=== PATIENT | male | born 1955 | race Caucasian/White ===

== ENCOUNTER 2016-06-11 18:19 | Emergency (ER) | payer BC ==
[2016-06-11 18:55] VITALS: BP 136/79
[2016-06-11] MEDS ORDERED: Tetan/Diph/Pertus SYR(Tdap)* 0.5 ML SYR(BOOSTRIX) use SYR IM ONE (19:07)
--- NOTE | 2016-06-11 19:32 | UC ---
Laceration HPI - History Of Current Complaint Chief Complaint: UCLaceration Stated Complaint: FINGER LAC Time Seen by Provider: 06/11/16 19:07 Hx Obtained From: Patient Laceration Location: Finger - lacerated R 2nd/3rd fingers with a sharp knife while trimming a cow's hoof Mechanism Of Injury: Sharp Trauma Onset/Duration: Sudden Onset - few hours Severity: Mild - states he needs a Tetanus shot Related History: Dominant Hand Left - Allergies/Home Medications Allergies/Adverse Reactions: Allergies Allergy/AdvReac Type Severity Reaction Status Date / Time Erythromycin Allergy Intermediate Hives Verified 02/07/16 12:19 PMH/Surg Hx/FS Hx/Imm Hx Previously Healthy: Yes Endocrine History Of: Denies: Diabetes Cardiovascular History Of: Denies: Cardiac Disorders Respiratory History Of: Denies: COPD - Surgical History Surgical History: Yes Surgery Procedure, Year, and Place: Cervical spine sx - Family History Known Family History: Positive: Cardiac Disease - MOTHER Negative: Hypertension, Diabetes - Social History Occupation: Employed Full-time - Dairy farm Alcohol Use: None Substance Use Type: None Smoking Status (MU): Never Smoked Tobacco Have You Smoked in the Last Year: No Review of Systems Constitutional: Negative Skin: Other - laceration Respiratory: Negative Cardiovascular: Negative Musculoskeletal: Negative Neurological: Negative Psychological: Negative All Other Systems Reviewed And Are Negative: Yes Physical Exam Triage Information Reviewed: Yes Appearance: Well-Appearing, No Pain Distress, Well-Nourished Vital Signs: Initial Vital Signs Temp 97.1 F 06/11/16 18:52 Pulse 60 06/11/16 18:52 Resp 18 06/11/16 18:52 BP 136/79 06/11/16 18:52 Pulse Ox 98 06/11/16 18:52 Vital Signs Reviewed: Yes Respiratory Exam: Normal Cardiovascular Exam: Normal Musculoskeletal: Positive: Strength Intact, ROM Intact Neurological Exam: Normal Neurological: Positive: Alert Psychological Exam: Normal Skin Exam: Other - superficial. linear lacerations palmar surface of R 2nd/3rd fingers. each laceration 6mm in length and 2mm deep, 2mm wide Laceration Repair - Laceration Repair 2 Description: Linear Laceration Size After Repair: Length (cm) - 6mm, Width (mm) - 2mm, Depth (mm) - 2mm Modified For Repair: No Closure Material: Skin Adhesive Laceration Course/Dx - Differential Dx - Laceration/Wound Differental Diagnoses: Abrasion, Avulsion, Laceration Provider Diagnoses: finger lacerations Discharge - Discharge Plan Condition: Good Disposition: HOME Patient Education Materials: Diphtheria/Acellular Pertussis/Tetanus Booster Vaccine (Tdap) (Injection) Additional Instructions: keep wounds clean and dry if signs of infection occur return here as soon as possible
== END 2016-06-11 19:52 | disposition home or self-care (01) ==
LOC: UCEAST 18:19
DX: S61.218A Laceration without foreign body of other finger without damage to nail, initial encounter (principal); W26.0XXA Contact with knife, initial encounter; Z88.1 Allergy status to other antibiotic agents
CPT/HCPCS: 90471; 90715; 99211; G0463

== ENCOUNTER 2017-02-18 13:17 | Emergency (ER) | payer BC ==
[2017-02-18 13:29] VITALS: BP 143/84
--- NOTE | 2017-02-18 14:18 | UC ---
Skin Complaint HPI - HPI Summary HPI Summary: Earlier today pt noticed pruritic area on left triceps, looked in the mirror and noticed a tick. Here today for removal. - History of Current Complaint Chief Complaint: UCSkin Stated Complaint: TICK BITE Hx Obtained From: Patient Onset/Duration: Sudden Onset Pain Intensity: 1 Pain Scale Used: 0-10 Numeric Location: Other - Left triceps Character: Pruritus, Pain, Redness Associated Signs & Symptoms: Positive: Negative - Allergy/Home Medications Allergies/Adverse Reactions: Allergies Allergy/AdvReac Type Severity Reaction Status Date / Time Erythromycin Allergy Intermediate Hives Verified 02/07/16 12:19 Review of Systems Constitutional: Negative Skin: Other - 2-3mm area of erythema and pruritis on left triceps Respiratory: Negative Cardiovascular: Negative Gastrointestinal: Negative Motor: Negative Neurovascular: Negative Musculoskeletal: Negative Neurological: Negative Psychological: Anxious - Very anxious about potential transmission of powassan virus All Other Systems Reviewed And Are Negative: Yes PMH/Surg Hx/FS Hx/Imm Hx - Surgical History Surgical History: Yes Surgery Procedure, Year, and Place: Cervical spine sx - Family History Known Family History: Positive: Cardiac Disease - MOTHER Negative: Hypertension, Diabetes - Social History Alcohol Use: None Substance Use Type: None Smoking Status (MU): Never Smoked Tobacco Have You Smoked in the Last Year: No Physical Exam Triage Information Reviewed: Yes Appearance: Well-Appearing Vital Signs: Initial Vital Signs Temp 98.5 F 02/18/17 13:26 Pulse 68 02/18/17 13:26 Resp 18 02/18/17 13:26 BP 143/84 02/18/17 13:26 Pulse Ox 98 02/18/17 13:26 Vital Signs Reviewed: Yes Respiratory Exam: Normal Respiratory: Positive: Chest non-tender, Lungs clear, Normal breath sounds Cardiovascular Exam: Normal Cardiovascular: Positive: RRR, No Murmur Neurological Exam: Normal Psychological Exam: Normal Skin Exam: Other Skin: Positive: Other - 2-3mm area of erythema on left triceps. Tick still within the skin and appears engorged Course/Dx - Course Course Of Treatment: The tick was easily removed with [employer] tick removers - all segments of the tick were removed. The pt was very anxious about the possible transmission of powassan virus he has heard about. Pt is unsure how long the tick has been on his person. Treatment for 21 days was advised, the patient, however, said that in the past he has only done the one 200mg dose. I explained the difference in situation, in that he is unsure how long the tick has been on him and 21 days of doxy would be appropriate treatment. Pt refused and wanted a single 200mg dose. The tick was placed in a sterile specimen container and given to the patient, along with contact information for [facility], [place] in regards to powassan testing. - Differential Diagnoses - Skin Complaint Differential Diagnoses: Other - tick bite - Diagnoses Provider Diagnoses: Tick bite left upper arm Discharge - Discharge Plan Condition: Stable Disposition: HOME Prescriptions: DOXYcycline CAP(*) [DOXYcycline 100MG CAP(*)] 100 mg PO DAILY #2 cap Patient Education Materials: Tick Bite (ED) Referrals: Clement Perez DO [Primary Care Provider] - If Needed Additional Instructions: Pt advised to look for early lyme disease symptoms. Advised to go to ED or call office if you experience fever, chills, or increased redness/swelling/pain in the area of the tick bite. Please follow up with [facility], [place] regarding powassan testing.
== END 2017-02-18 14:30 | disposition home or self-care (01) ==
LOC: UCEAST 13:17
DX: S40.862A Insect bite (nonvenomous) of left upper arm, initial encounter (principal); W57.XXXA Bitten or stung by nonvenomous insect and other nonvenomous arthropods, initial encounter; Y92.9 Unspecified place or not applicable
CPT/HCPCS: 99212; G0463

== ENCOUNTER 2017-10-13 07:14 | Emergency (ER) | payer BC ==
[2017-10-13 07:27] VITALS: BP 148/81
--- NOTE | 2017-10-13 07:51 | UC ---
Skin Complaint HPI - HPI Summary HPI Summary: PATIENT FOUND A TICK ATTACHED TO HIS RIGHT INNER THIGH ABOUT 2 DAYS AGO. UNSURE HOW LONG IT WAS ATTACHED. HE REMOVED THE TICK USING A TICK TWISTER BUT REPORTS HE HAD SOME DIFFICULTY AND ENDED UP ABRADING HIS SKIN A LITTLE BIT. HE WOKE UP THIS MORNING WITH AN AREA OF REDNESS AND TENDERNESS AROUND THE TICK BITE SITE. NO FEVER, HEADACHE OR NAUSEA. - History of Current Complaint Chief Complaint: UCSkin Time Seen by Provider: 10/13/17 07:34 Stated Complaint: TICK BITE Hx Obtained From: Patient Onset/Duration: Sudden Onset, Lasting Hours, Still Present Timing: Constant Onset Severity: Mild Current Severity: Mild Pain Intensity: 2 Pain Scale Used: 0-10 Numeric Location: Discrete - RIGHT INNER THIGH Character: Pain, Redness Aggravating Factor(s): Touch Alleviating Factor(s): Nothing Associated Signs & Symptoms: Positive: Tenderness Related History: Insect Bite/Sting - Allergy/Home Medications Allergies/Adverse Reactions: Allergies Allergy/AdvReac Type Severity Reaction Status Date / Time erythromycin base Allergy Hives Verified 10/13/17 07:27 Home Medications: Home Medications Aspirin 81 mg PO 10/13/17 [History] Review of Systems Constitutional: Negative Skin: Rash Respiratory: Negative Cardiovascular: Negative Gastrointestinal: Negative Neurological: Negative All Other Systems Reviewed And Are Negative: Yes PMH/Surg Hx/FS Hx/Imm Hx Endocrine History: Dyslipidemia - Surgical History Surgical History: Yes Surgery Procedure, Year, and Place: Cervical spine sx - Family History Known Family History: Positive: Cardiac Disease - MOTHER Negative: Hypertension, Diabetes - Social History Alcohol Use: None Substance Use Type: None Smoking Status (MU): Never Smoked Tobacco Have You Smoked in the Last Year: No Physical Exam Triage Information Reviewed: Yes Appearance: Well-Appearing, No Pain Distress, Well-Nourished Vital Signs: Initial Vital Signs Temp 97.2 F 10/13/17 07:23 Pulse 55 10/13/17 07:23 Resp 18 10/13/17 07:23 BP 148/81 10/13/17 07:23 Pulse Ox 96 10/13/17 07:23 Vital Signs Reviewed: Yes Eyes: Positive: Conjunctiva Clear ENT: Positive: Hearing grossly normal Neck: Positive: Supple Respiratory: Positive: No respiratory distress, No accessory muscle use Cardiovascular: Positive: Pulses Normal Abdomen Description: Positive: Soft Musculoskeletal: Positive: No Edema Neurological: Positive: Alert Psychological: Positive: Age Appropriate Behavior Skin: Positive: Other - 5CM DIAMETER AREA OF ERYTHEMA SURROUNDING TICK BITE SITE Course/Dx - Diagnoses Provider Diagnoses: 1. CELLULITIS. 2. LYME PROPHYLAXIS Discharge - Sign-Out/Discharge Documenting (check all that apply): Discharge/Admit/Transfer - Discharge Plan Condition: Stable Disposition: HOME Prescriptions: Cephalexin CAP* [Keflex 500 CAP*] 1,000 mg PO BID #28 cap Doxycycline Monohydrate [Doxycycline Monohydrate] 2 cap PO ONCE #2 cap Patient Education Materials: Cellulitis (ED), Tick Bite (ED) Referrals: Clement Perez DO [Primary Care Provider] - If Needed Additional Instructions: You received an rx for 200mg of doxycycline for prophylaxis against Lyme disease. The Infectious Disease Society of [place] (IDSA) does not generally recommend antimicrobial prophylaxis for prevention of Lyme disease after a recognized tick bite. However, in areas that are highly endemic for Lyme disease, a single dose of doxycycline may be offered to adult patients (200 mg) who are not and to children older than 8 years of age (4 mg/kg up to a maximum dose of 200 mg) when all of the following circumstances exist: CRITERIA FOR RECEIVING PROPHYLACTIC TREATMENT FOR LYME DISEASE 1) TICK ATTACHED FOR AT LEAST 36 HRS 2) TICK IS AN ADULT OR [place] DEER TICK 3) YOU LIVE IN AN AREA WHERE LYME DISEASE IS PREVALENT (i.e., [place], [place], [place], , [place] , [place], [place], [place], [place], [place], [place], [place], [place], [place]) 4) YOU HAVE NO CONTRAINDICATION TO THE MEDICATION (DOXYCYCLINE) 5) PROPHYLAXIS IS BEGUN WITHIN 72 HRS OF TICK REMOVAL YOUR CHANCES OF DEVELOPING LYME DISEASE ARE EXTREMELY SMALL. BE VIGILANT OF YOUR SYMPTOMS AND DON'T HESITATE TO GET SEEN AGAIN IF YOU DEVELOP UNEXPLAINED FEVER, HEADACHE, JOINT PAIN, BODY ACHES, RASH OR ANY OTHER CONCERNING SYMPTOMS. Antibiotic treatment following a tick bite is not recommended as a means to prevent anaplasmosis, babesiosis, ehrlichiosis, or [place] spotted fever. There is no evidence this practice is effective, and it may simply delay onset of disease. Instead, persons who experience a tick bite should be alert for symptoms suggestive of tickborne illness and consult a physician if fever, rash, or other symptoms of concern develop. YOUR RASH IS CONSISTENT IN APPEARANCE WITH A SKIN INFECTION. IT DOES NOT HAVE THE APPEARANCE OF A LYME DISEASE RASH. THE TIMING IS ALSO MORE CONSISTENT WITH A DEVELOPING SKIN INFECTION. TAKE THE ANTIBIOTIC TWICE DAILY FOR THE FULL 7 DAYS. KEEP THE AREA CLEAN. SEEK FOLLOW-UP IF IT IS NOT IMPROVING EXPECTED. - Billing Disposition and Condition Condition: STABLE Disposition: Home
== END 2017-10-13 07:58 | disposition home or self-care (01) ==
LOC: UCEAST 07:14
DX: S70.361A Insect bite (nonvenomous), right thigh, initial encounter (principal); L03.115 Cellulitis of right lower limb; W57.XXXA Bitten or stung by nonvenomous insect and other nonvenomous arthropods, initial encounter; Y93.9 Activity, unspecified; Y92.9 Unspecified place or not applicable; E78.5 Hyperlipidemia, unspecified; Z88.1 Allergy status to other antibiotic agents; Z82.49 Family history of ischemic heart disease and other diseases of the circulatory system
CPT/HCPCS: 99212; G0463

== ENCOUNTER 2019-04-05 20:41 | Emergency (ER) | payer BC ==
--- NOTE | 2019-04-05 21:32 | UC ---
Cardiac HPI - HPI Summary HPI Summary: Mr. Martinez started with a difficult to characterize chest pain/epigastric pain at about 1600 hrs. The pain radiates a little bit into his back. He feels gassy but has no other associated symptoms. He cannot characterize any exacerbating or relieving conditions. He was at a meeting all day and picked at different foods and then had pizza shortly before the meeting ended. He drank a lot of coffee and stopped at [employer] and got a couple coffee on the way home from the meeting. The meeting was not stressful. His doctors told him he has extra beats. - History of Current Complaint Chief Complaint: UCChestPain Stated Complaint: ABDOMINAL PAIN Time Seen by Provider: 04/05/19 20:46 Hx Obtained From: Patient, Family/Insole And Outsole Splitter Onset/Duration: Sudden Onset, Lasting Hours Timing: Constant Initial Severity: Moderate Current Severity: Moderate Pain Intensity: 5 Chest Pain Location: Lower Sternal - And epigastric Character: Dull/Aching Aggravating Factor(s): Nothing Alleviating Factor(s): Nothing - Burping - Risk Factors Cardiac Risk Factors: Elevated Lipids, Family History - Allergy/Home Medications Allergies/Adverse Reactions: Allergies Allergy/AdvReac Type Severity Reaction Status Date / Time erythromycin base Allergy Hives Verified 04/05/19 21:00 PMH/Surg Hx/FS Hx/Imm Hx Endocrine History: Dyslipidemia - Surgical History Surgical History: Yes Surgery Procedure, Year, and Place: Cervical spine sx - Family History Known Family History: Positive: Cardiac Disease - MOTHER, his older brother had a heart attack a couple years ago Negative: Hypertension, Diabetes - Social History Alcohol Use: None Substance Use Type: None Smoking Status (MU): Never Smoked Tobacco Have You Smoked in the Last Year: No Review of Systems All Other Systems Reviewed And Are Negative: Yes Constitutional: Positive: Negative Respiratory: Positive: Negative Cardiovascular: Positive: Chest Pain Gastrointestinal: Positive: Abdominal Pain Physical Exam - Summary Physical Exam Summary: He is nontoxic in appearance with stable vital signs. Triage Information Reviewed: Yes Appearance: Well-Appearing, No Pain Distress Vital Signs: Initial Vital Signs Temp 97.9 F 04/05/19 20:56 Pulse 60 04/05/19 20:56 Resp 16 04/05/19 20:56 BP 156/86 04/05/19 20:56 Pulse Ox 98 04/05/19 20:56 Vital Signs Reviewed: Yes ENT Exam: Normal Neck exam: Normal Respiratory Exam: Normal Cardiovascular Exam: Normal Abdominal Exam: Other - He is tender in the epigastrium. Negative Stark sign Musculoskeletal Exam: Normal Neurological Exam: Normal Skin Exam: Normal Diagnostics - EKG Cardiac Rate: NL Cardiac Rhythm: Sinus: Normal, Other Rhythm: New Ectopy: PVCs - Ventricular bigeminy at a controlled rate ST Segment: Normal EKG Comparison: Other - No old EKGs in the system - Assessment/Plan Course Of Treatment: Mr. Martinez has a worrisome story. He's had about 5 hours of chest pain and presents with ventricular bigeminy. His exam is pretty unremarkable and his story is consistent with a GI etiology however he clearly needs a rule out on a monitor with labs. He has agreed to go over to the emergency department for evaluation by ambulance. An IV was initiated here he was given 243 mg of aspirin. He took 81 mg this morning. - Clinical Impression Provider Diagnosis: Chest pain Discharge ED - Sign-Out/Discharge Documenting (check all that apply): Patient Departure All imaging exams completed and their final reports reviewed: No Studies - Discharge Plan Condition: Stable Disposition: ADMITTED TO [facility] Patient Education Materials: Chest Pain (ED) Referrals: Clement Perez DO [Primary Care Provider] - - Billing Disposition and Condition Condition: STABLE Disposition: Admitted to [facility]
[2019-04-05] MEDS ORDERED: Aspirin TAB* 325 MG PO ONE (21:34)
[2019-04-05] MEDS ORDERED: Aspirin 81 mg CHEW TAB* 81 MG TAB.CHEW ONE (21:36)
[2019-04-05 21:47] VITALS: BP 178/77
== END 2019-04-05 21:55 | disposition short-term general hospital (02) ==
LOC: UCEAST 20:41
DX: R07.9 Chest pain, unspecified (principal); R00.8 Other abnormalities of heart beat; R10.816 Epigastric abdominal tenderness; Z88.1 Allergy status to other antibiotic agents
CPT/HCPCS: 93005; 99213; A9270-GY; G0463

== ENCOUNTER 2019-04-05 21:57 | Emergency (ER) | payer BC ==
--- NOTE | 2019-04-05 22:36 | ED ---
HPI Chest Pain - HPI Summary HPI Summary: 63-year-old male with significant past medical history of hyperlipidemia reports the emergency department today complaining of chest pain which began at 1530 today. He states he had a 6 out of 10 sensation of chest pain, gas, abdominal pain, back pain this afternoon. he denies associated symptoms such as diaphoresis, shortness of breath, lightheadedness, increased pain with exertion. He states he did try taking Tums for alleviation of symptoms which did not work. He has concerns as he has a significant family history of cardiac issues such as IA. He went to urgent care for initial evaluation and he was sent to the ED due to EKG abnormalities. He denies fever, changes in vision, lightheadedness, diaphoresis, nausea, vomiting, diarrhea, rash, pain and urination. - History of Current Complaint Chief Complaint: EDChestPainROMI Time Seen by Provider: 04/05/19 22:36 Hx Obtained From: Patient, Family/Supervisor Order Takers - [email or web address] Onset/Duration: Started Hours Ago Timing: Constant Initial Severity: Mild Current Severity: Mild Pain Intensity: 4 Pain Scale Used: 0-10 Numeric Chest Pain Location: Mid Sternal Chest Pain Radiates: No Character: Burning, Heaviness Aggravating Factor(s): Nothing Alleviating Factor(s): Nothing Associated Signs and Symptoms: Positive: Chest Pain, Back Pain. Negative: Anxiety, Recent Stress, Numbness, Tingling, Weakness, Shortness of Breath, Fever , Lightheadedness, Diaphoresis, Nausea, Cough, Abdominal Pain, Vomiting, URI - Allergy/Home Medications Allergies/Adverse Reactions: Allergies Allergy/AdvReac Type Severity Reaction Status Date / Time erythromycin base Allergy Hives Verified 04/05/19 21:00 PMH/Surg Hx/FS Hx/Imm Hx Endocrine/Hematology History: Denies: Hx Diabetes Respiratory History: Denies: Hx Chronic Obstructive Pulmonary Disease (COPD) - Surgical History Surgery Procedure, Year, and Place: Cervical spine sx Infectious Disease History: No Infectious Disease History: Denies: Traveled Outside the [place] in Last 30 Days - Family History Known Family History: Positive: Cardiac Disease - MOTHER, his older brother had a heart attack a couple years ago Negative: Hypertension, Diabetes - Social History Alcohol Use: None Substance Use Type: Reports: None Smoking Status (MU): Never Smoked Tobacco Have You Smoked in the Last Year: No Review of Systems Constitutional: Negative Eyes: Negative ENT: Negative Positive: Chest Pain Respiratory: Negative Gastrointestinal: Negative Genitourinary: Negative Musculoskeletal: Negative Skin: Negative Neurological: Negative Psychological: Normal All Other Systems Reviewed And Are Negative: Yes Physical Exam Triage Information Reviewed: Yes Vital Signs On Initial Exam: Initial Vitals Temp Pulse Resp BP Pulse Ox 98.1 F 82 20 186/84 97 04/05/19 22:05 04/05/19 22:05 04/05/19 22:05 04/05/19 22:05 04/05/19 22:05 Vital Signs Reviewed: Yes Appearance: Positive: Well-Appearing, No Pain Distress, Well-Nourished Skin: Positive: Warm, Skin Color Reflects Adequate Perfusion Eyes: Positive: EOMI, AMANDA ENT: Positive: Hearing grossly normal Neck: Positive: Nontender Respiratory/Lung Sounds: Positive: Clear to Auscultation, Breath Sounds Present Cardiovascular: Positive: RRR, S1, S2 Abdomen Description: Positive: Nontender, No Organomegaly Bowel Sounds: Positive: Present Musculoskeletal: Positive: Strength/ROM Intact Neurological: Positive: Sensory/Motor Intact, Alert, Oriented to Person Place, Time, Normal Gait, Speech Normal Psychiatric: Positive: Normal AVPU Assessment: Alert Procedures - Sedation Patient Received Moderate/Deep Sedation with Procedure: No Diagnostics - Vital Signs Vital Signs Temp Pulse Resp BP Pulse Ox 04/05/19 22:05 98.1 F 82 20 186/84 97 - Laboratory Result Diagrams: 04/05/19 22:17 04/05/19 22:17 Lab Statement: Any lab studies that have been ordered have been reviewed, and results considered in the medical decision making process. Chest Pain Course/Dx - Course Course Of Treatment: Patient was evaluated in the emergency department for chest pain. Patient was seen and examined his vitals were stable. Laboratory studies were done which showed a slightly elevated white blood cell count 11.4 but no other abnormalities suggesting infectious pathology. There were no electrolyte abnormalities. Serial troponins were negative. EKG showed bigeminy. Sinus tachycardia at a rate of 103 bpm. Normal TN and QTc interval. Patient's rhythm changed to normal sinus rhythm during emergency room stay. Life-threatening pathology such as heart attack or ruled out as a cause of his symptoms. He was told to follow-up with his primary care provider for further evaluation and management of his symptoms. Patient agreed to this plan. Heart score 3 - Chest Pain Differential Diagnosis/HQI/PQRI: Acute IA, ACS, Angina, CHF, Pulmonary Embolism - Diagnoses Bad table Discharge ED - Sign-Out/Discharge Documenting (check all that apply): Patient Departure - Discharge Plan Condition: Stable Disposition: HOME Patient Education Materials: Angina (ED) Referrals: Beto Manley DO [Medical Doctor] - 2 Days Clement Perez DO [Primary Care Provider] - 2 Days Additional Instructions: You were seen in the emergency department today for chest pain. Laboratory studies were done which showed no evidence of heart attack. I'm unsure what is causing your symptoms however cardiac origin cannot be ruled out. Please follow up with your primary care provider on Monday for further evaluation and treatment of your symptoms. Please return to the emergency department immediately if you develop any new or worsening symptoms. Return to activity as tolerated. - Billing Disposition and Condition Condition: STABLE Disposition: Home
[2019-04-05] MEDS ORDERED: Al Hydrox/Mg Hydrox/Simet LIQ* 30 ML UDC PO ONE (22:53)
[2019-04-05] MEDS ORDERED: Lidocaine 2% VISCOUS* 15 ML UDC PO ONE (22:54)
[2019-04-05 23:07] LABS: ABS Eosinophils 0.5 10^3/ul (0-0.6); ABS Lymphocytes 1.6 10^3/ul (1.0-4.8); ABS Monocytes 1.3 10^3/ul (0-0.8); Eosinophil % 4.1 %; Hematocrit 45 % (42-52); Hemoglobin 15.5 g/dL (14.0-18.0); Lymphocyte % 13.9 %; Mean Corpuscular HGB Conc 35 g/dL (31-36); Mean Corpuscular Hemoglobin 32 pg (27-31); Mean Corpuscular Volume 91 fL (80-94); Mean Platelet Volume 10.3 fL (7.4-10.4); Nucleated Red Blood Cells % 0.1; Platelet Count 154 10^3/uL (150-450); Red Blood Count 4.93 10^6 /uL (4.18-5.48); Red Cell Distribution Width 13 % (10-15); White Blood Count 11.4 10^3/uL (3.5-10.8)
[2019-04-05 23:29] LABS: Albumin 4.1 g/dL (3.2-5.2); Albumin/Globulin Ratio 1.4 (1-3); BUN/Creatinine Ratio 20.2 (8-20); Calcium 9.5 mg/dL (8.6-10.3); EGFR African American 98.4 (>60); EGFR Non-African American 81.3 (>60); Globulin 2.9 g/dL (2-4); Potassium 3.8 mmol/L (3.5-5.0); Total Bilirubin 0.6 mg/dL (0.2-1.0); Troponin I 0.01 ng/mL (<0.03)
[2019-04-06 03:15] VITALS: BP 123/71
== END 2019-04-06 03:13 | disposition home or self-care (01) ==
LOC: ED 21:57
DX: R07.89 Other chest pain (principal); M54.9 Dorsalgia, unspecified; Z88.1 Allergy status to other antibiotic agents; Z82.49 Family history of ischemic heart disease and other diseases of the circulatory system; R00.0 Tachycardia, unspecified
CPT/HCPCS: 36415; 80053; 83605; 84484; 85025; 93005; 99284; A9270-GY